=== PATIENT | female | born 1950 | race Hispanic/Latino ===

== ENCOUNTER 2022-01-24 07:00 | Emergency (ER) | payer OTHER, MEDICARE ==
[~2022-01-24] VITALS: Ht 165.1 cm; Wt 74.8 kg
[2022-01-24] MEDS ORDERED: PANTOPRAZOLE 40 MG/VIAL ONE (07:14)
[2022-01-24 07:22] VITALS: BP 174/70
[2022-01-24 07:22] LABS: BASOPHILS % (AUTO) 0.6 % (0.0-5.0); EOSINOPHILS % (AUTO) 0.2 % (0.0-8.0); HEMATOCRIT 41.9 % (36-48); LYMPHOCYTES % (AUTO) 11.8 % (21.0-51.0); MEAN CORPUSCULAR HEMOGLOBIN 25.7 pg (27.0-33.0); MEAN CORPUSCULAR HGB CONC 33.7 g/dL (32.0-36.0); MEAN CORPUSCULAR VOLUME 76.3 fL (79-99); MONOCYTES % (AUTO) 2.6 % (3.0-13.0); PLATELET COUNT (AUTO) 272 K/uL (130-400); RED BLOOD CELL COUNT(AUTO) 5.49 MIL/uL (4.00-5.50); RED CELL DISTRIBUTION WIDTH 13.1 % (11.0-15.5); WHITE BLOOD COUNT (AUTO) 12.3 K/uL (4.8-10.8)
[2022-01-24] MEDS ORDERED: PANTOPRAZOLE 40 MG/VIAL IVP SCH (07:30)
[2022-01-24 07:43] LABS: POTASSIUM 3.7 mmol/L (3.5-5.1); TOTAL PROTEIN, SERUM 8.1 g/dL (6.0-8.3)
[2022-01-24] MEDS ORDERED: PANT40TA55 PO (08:50)
== END 2022-01-24 08:58 | disposition home or self-care (01) ==
LOC: EDH 07:00
DX: K21.9 Gastro-esophageal reflux disease without esophagitis (principal); M19.90 Unspecified osteoarthritis, unspecified site
CPT/HCPCS: 99285; 96374; 71045; 84484; 80053; 85025; 36415; 93005; C9113

== ENCOUNTER → 2022-07-20 | Outpatient (CLI) | payer OTHER, MEDICARE ==
[~2022-07-20] MED LIST: PANT40TA55 PO
== END | disposition home or self-care (01) ==
LOC: RAH 09:42
PROVIDERS: ATTEND Family Medicine
DX: Z12.31 Encounter for screening mammogram for malignant neoplasm of breast (principal)
CPT/HCPCS: 77067

== ENCOUNTER 2022-09-24 06:03 | Emergency (ER) | payer OTHER, MEDICARE ==
[~2022-09-24] VITALS: Ht 160 cm; Wt 72.6 kg
[2022-09-24] MEDS ORDERED: NITROGLYCERIN 0.4 MG SL TAB SL ONE (06:37)
[2022-09-24 06:50] LABS: BASOPHILS % (AUTO) 0.8 % (0.0-5.0); EOSINOPHILS % (AUTO) 0.3 % (0.0-8.0); HEMATOCRIT 41.3 % (36-48); LYMPHOCYTES % (AUTO) 11.8 % (21.0-51.0); MEAN CORPUSCULAR HEMOGLOBIN 25.3 pg (27.0-33.0); MEAN CORPUSCULAR HGB CONC 32.9 g/dL (32.0-36.0); MEAN CORPUSCULAR VOLUME 76.9 fL (79-99); MONOCYTES % (AUTO) 2.7 % (3.0-13.0); PLATELET COUNT (AUTO) 281 K/uL (130-400); RED BLOOD CELL COUNT(AUTO) 5.37 MIL/uL (4.00-5.50); RED CELL DISTRIBUTION WIDTH 13.3 % (11.0-15.5); WHITE BLOOD COUNT (AUTO) 10.7 K/uL (4.8-10.8)
[2022-09-24] MEDS ORDERED: MAG/ALUM/SIMETH 30 ML UDCUP PO ONE (07:00)
[2022-09-24] MEDS ORDERED: LIDOCAINE HCL 2% VISCOUS 15 ML UDCUP PO ONE (07:00)
[2022-09-24] MEDS ORDERED: NITROGLYCERIN 0.4 MG SL TAB SL PRN (07:00)
[2022-09-24] MEDS ORDERED: ONDANSETRON 4MG INJ IVP ONE (07:00)
[2022-09-24 07:28] LABS: B-TYPE NATRIURETIC PEPTIDE 95 pg/mL (0-100)
[2022-09-24 08:05] LABS: CREATININE 0.9 mg/dL (0.5-1.5); POTASSIUM 3.9 mmol/L (3.5-5.1); TOTAL PROTEIN, SERUM 7.4 g/dL (6.0-8.3)
[2022-09-24 10:37] VITALS: BP 148/62
[2022-09-24] MEDS ORDERED: FAMO-136 PO (11:12)
== END 2022-09-24 11:23 | disposition home or self-care (01) ==
LOC: EDH 06:03
DX: K21.9 Gastro-esophageal reflux disease without esophagitis (principal); M19.90 Unspecified osteoarthritis, unspecified site; F41.9 Anxiety disorder, unspecified; Z79.899 Other long term (current) drug therapy; Z88.0 Allergy status to penicillin
CPT/HCPCS: 99285; 96374; 71045; 84484 ×2; 80053; 83880; 85025; 36415; 93005; J2405

== ENCOUNTER 2023-02-27 07:51 | Emergency (ER) | payer OTHER, MEDICARE ==
[~2023-02-27] VITALS: Ht 162.6 cm; Wt 69.4 kg
[~2023-02-27 07:51] MED LIST changes: +FAMO-136 PO
[2023-02-27 08:34] LABS: BASOPHILS # (AUTO) 0.09 K/uL (0.00-0.20); BASOPHILS % (AUTO) 0.7 % (0.0-5.0); EOSINOPHILS # (AUTO) 0.03 K/uL (0.00-0.70); EOSINOPHILS % (AUTO) 0.2 % (0.0-8.0); HEMATOCRIT 40.5 % (36-48); IMMATURE GRANULOCYTE ABSOLUTE 0.07 K/uL (0-1); LYMPHOCYTES % (AUTO) 7.3 % (21.0-51.0); MEAN CORPUSCULAR HEMOGLOBIN 25.6 pg (27.0-33.0); MEAN CORPUSCULAR HGB CONC 32.8 g/dL (32.0-36.0); MEAN CORPUSCULAR VOLUME 77.9 fL (79-99); MONOCYTES # (AUTO) 0.4 K/uL (0.1-1.0); MONOCYTES % (AUTO) 2.6 % (3.0-13.0); NEUTROPHILS # (AUTO) 11.9 K/uL (1.8-7.7); NEUTROPHILS % (AUTO) 88.7 % (40.0-77.0); PLATELET COUNT (AUTO) 262 K/uL (130-400); RED CELL DISTRIBUTION WIDTH 12.9 % (11.0-15.5); WHITE BLOOD COUNT (AUTO) 13.4 K/uL (4.8-10.8)
[2023-02-27 08:48] LABS: POTASSIUM 3.2 mmol/L (3.5-5.1)
[2023-02-27 08:52] LABS: ALBUMIN 3.8 g/dL (3.5-5.0); BILIRUBIN,TOTAL 0.4 mg/dL (0.2-1.0); MAGNESIUM 1.7 mg/dL (1.80-2.40); TOTAL PROTEIN, SERUM 7.8 g/dL (6.0-8.3)
[2023-02-27] MEDS ORDERED: ONDANSETRON 4MG INJ IVP ONE (09:00)
[2023-02-27] MEDS ORDERED: PANTOPRAZOLE 40 MG/VIAL IVP ONE (09:00)
[2023-02-27] MEDS ORDERED: SUCRALFATE 1 GM TABLET PO ONE (09:00)
[2023-02-27] MEDS ORDERED: HYOSCYAMINE SULFATE 0.125 MG TAB.SUBL SL ONE (09:00)
[2023-02-27] MEDS ORDERED: SUCRALFATE 1 GM TABLET PO SCH (09:00)
[2023-02-27 09:27] LABS: BILIRUBIN,URINE NEGATIVE (NEGATIVE); COLOR,URINE LIGHT-YELLOW (YELLOW); GLUCOSE, URINE (UA) NEGATIVE (NEGATIVE); KETONES,URINE 10 mg/dL (NEGATIVE); LEUKOCYTE ESTERASE ,URINE 500 Leu/uL (NEGATIVE); NITRATE,URINE NEGATIVE (NEGATIVE); OCCULT BLOOD,URINE MODERATE (NEGATIVE); PH,URINE 5.5 (5.0-8.0); PROTEIN,URINE 30 mg/dL (NEGATIVE); UROBILINOGEN,URINE 0.2 mg/dL (0.2-1.0)
[2023-02-27 09:33] LABS: ADD UA MICROSCOPIC YES; APPEARANCE,URINE HAZY (CLEAR)
[2023-02-27 09:52] LABS: BACTERIA,URINE FEW /HPF (None Seen); MUCUS,URINE RARE LPF (None Seen); SQUAMOUS EPITHELIAL CELL,UR RARE /HPF (0-2); WBC,URINE TNTC /HPF (0-1)
[2023-02-27] MEDS ORDERED: MAGNESIUM OXIDE 400 MG TABLET PO ONE (11:00)
[2023-02-27] MEDS ORDERED: MORPHINE 2 MG SYG IVP ONE (11:00)
[2023-02-27] MEDS ORDERED: KCL 20 MEQ ERTAB PO ONE (11:00)
[2023-02-27] MEDS ORDERED: LEVOFLOXACIN 500 MG/D5W 100 ML 100 ML IV ONE (12:00)
[2023-02-27] MEDS ORDERED: CIPR-279 PO (13:01)
[2023-02-27 13:22] VITALS: BP 154/81; PULSE 55; RESP 16; O2SAT 97
[2023-02-27] MEDS ORDERED: FAMO-136 PO (14:00)
== END 2023-02-27 14:11 | disposition home or self-care (01) ==
LOC: EDH 07:51
DX: K21.9 Gastro-esophageal reflux disease without esophagitis (principal); E87.6 Hypokalemia; E83.42 Hypomagnesemia; N39.0 Urinary tract infection, site not specified; E78.00 Pure hypercholesterolemia, unspecified; M19.90 Unspecified osteoarthritis, unspecified site; Z79.899 Other long term (current) drug therapy; Z88.0 Allergy status to penicillin
CPT/HCPCS: 99285; 96374; 71045; 96361; 96375; 82550; 83735; 84484 ×2; 80053; 83690; 85025; 85378; 87088; 81001; 36415; 93005 ×2; J1956; J2270; J2405; C9113

== ENCOUNTER → 2024-01-20 | Outpatient (CLI) | payer OTHER, MEDICARE ==
[~2024-01-20] MED LIST changes: +ATOR20TA65 PO; -FAMO-136 PO; +FAMO20TA8 PO
== END | disposition home or self-care (01) ==
LOC: RAH 07:45
PROVIDERS: ATTEND Internal Medicine
DX: Z78.0 Asymptomatic menopausal state (principal)
CPT/HCPCS: 77080